=== PATIENT | male | born 1935 | race Caucasian/White ===

== ENCOUNTER 2016-06-27 12:12 | Outpatient (CLI) | payer OTHER ==
[2015-03-02 10:11] VITALS: BP 128/61
[2016-06-27 12:39] LABS: BASOPHILS % 0.6 (0.0-1.5); EOSINOPHILS % 2.4 % (0.0-6.8); LYMPHOCYTES # 2.1 # k/uL (0.6-4.0); MONOCYTES # 0.7 # k/uL (0.0-0.9); MONOCYTES % 6.5 % (0.0-11.0)
[2016-06-27 12:56] LABS: eGFR (African) > 60; eGFR (Non-African) > 60
[2016-06-27 13:02] LABS: CREATINE KINASE MB 2.1 ng/mL (0.3-5.0)
== END 2016-06-27 12:14 ==
LOC: RT 12:12
PROVIDERS: ATTEND Family Medicine
DX: R07.2 Precordial pain (principal)
CPT/HCPCS: 36415; 80048; 82550; 82553; 84484; 85025

== ENCOUNTER 2017-02-06 11:37 | Outpatient (CLI) | payer OTHER ==
[2015-03-02 10:11] VITALS: BP 128/61
[2017-02-06 12:27] LABS: eGFR (African) > 60; eGFR (Non-African) > 60
== END 2017-02-06 11:40 ==
LOC: LAB 11:37
PROVIDERS: ATTEND Family Medicine
DX: E78.2 Mixed hyperlipidemia (principal)
CPT/HCPCS: 36415; 80053; 80061

== ENCOUNTER 2017-07-31 18:55 | Emergency (ER) | payer OTHER ==
--- NOTE | 2017-07-31 19:03 | ED Physician Documentation ---
General Adult - HISTORIAN Historian: patient - HPI Stated Complaint: chest pressure and SOA Chief Complaint: Chest Pain Onset: hours (9 hours ) Timing: better Severity: mild Further Comments: yes (He states at around 930 -1000 am he was taking the trash out and noticed he did not recover from this activity like usually does. He states he does not have COPD although he is taking Spiriva. He states after this he did feel like his arms were heavy and he had some chest pressure. He states he has had since the chest pressure and fatigue. He did check his b/p at home and the number was 171/113. He states at this time he feels "normal" . According to chart and after discussion he had a stent and he was taking Plavix and was removed due to a GI bleed question 1-2 years ago. He does take Atenolol twice daily (both doses) and he has had his normal meds this am.) Last known Well Date: 07/31/17 Last Known Well Time: 10:00 - ROS CONST: other (He has had a cough and congestion x 3 days . No fever ) EYES/ENT: none CVS/RESP: chest pain, shortness of breath, cough GI/: denies: abdominal pain, vomiting, nausea, diarrhea MS/SKIN/LYMPH: denies: neck pain, leg swelling, rash NEURO/PSYCH: denies: headache, fainting, dizziness, tingling, numbness, difficulty walking, difficulty with speech - PAST HX Past History: COPD, A-Fib (new ), other (stent placement ) Surgeries/Procedures: other (Stent ) Immunizations: UTD Allergies/Adverse Reactions: Allergies Allergy/AdvReac Type Severity Reaction Status Date / Time bacitracin Allergy Verified 07/31/17 19:33 [From Triple Antibiotic] bacitracin zinc Allergy Verified 07/31/17 19:33 [From Triple Antibiotic] neomycin sulfate Allergy Verified 07/31/17 19:33 [From Triple Antibiotic] polymyxin B Allergy Verified 07/31/17 19:33 [From Triple Antibiotic] polymyxin B sulfate Allergy Verified 07/31/17 19:33 [From Triple Antibiotic] Home Medications: Ambulatory Orders Medication Instructions Recorded Aspirin [Matt] 81 mg PO [id number] 04/29/14 - SOCIAL HX Smoking History: cigarettes (1.5) Alcohol Use: none Drug Use: none - FAMILY HX Family History: No - VITAL SIGNS Vital Signs: Vital Signs Temp Pulse Resp BP Pulse Ox 128/61 03/02/15 10:00 - REVIEWED ASSESSMENTS Nursing Assessment Reviewed: Yes Vitals Reviewed: Yes Progress - Progress Progress: 1814: Family at bedside - with pt discussed current findings. Will await all test results and contact [facility]. He is "feeling ok" . DG 2039: did call garcia for possible admission. Admission advisor / Nursing Senior Warehouse Clerk aware and all results discussed. Will await CT scan results DG 2109: sitting in bed resting quietlyDG 2134: Library Services Dean at [facility] notified of CT results. She will notify physician and return call. DG ED Results Lab/Radiology - Radiology Radiology Impressions: Chest AP portable Date of Exam: July 31, 2017. History: CHEST PAIN, SHORTNESS OF BREATH, CHEST PRESSURE (Hx) / ITS.REASON chest pain Note time : 07/31/2017 8:36:53 PM User : Alejandro Jacobson CHEST PAIN (DICOM Hx) / ITS.REASON chest pain (Pt comments) Findings: No comparison studies are provided. The cardiac and mediastinal silhouettes are normal. Bibasilar dependent lung densities or atelectasis is present. The trachea is midline and the aortic arch contour is normal. The pulmonary vascularity is within normal limits. There is a right lower lobe lung granuloma. Impression: No acute cardiopulmonary abnormality. Electronically signed on Jul 31, 2017 8:12:40 PM CDT by: Mimi Benedict General Adult Physical Exam - PHYSICAL EXAM GENERAL APPEARANCE: no distress EENT: ENT inspection normal, JAZMIN NECK: normal inspection RESPIRATORY: no resp distress, chest non-tender, rhonchi (right upper ) CVS: no JVD, other (irregular ) ABDOMEN: soft, normal bowel sounds, no distension SKIN: warm/dry, normal color EXTREMITIES: non-tender, normal range of motion, no evidence of injury, edema ( RLL ) NEURO: oriented X3, CN's nml as tested, motor nml, sensation nml, mood/affect nml Discharge Clincal Impression: A-fib Qualifiers: Atrial fibrillation type: unspecified Qualified Code(s): I48.91 - Unspecified atrial fibrillation Referrals: Gala Terrell MD [Primary Care Provider] - 2 Days Additional Instructions: 1. Transfer to [facility] accepting [facility] [id number] DG Condition: Serious Disposition: XFER SHT-TRM HOSP Decision to Admit: NO Date of Decison to Admit: 07/31/17 Decision Time: 21:45
[2017-07-31] MEDS ORDERED: ASPIRIN 81 MG CHEW TAB ONE (19:22)
[2017-07-31] MEDS ORDERED: ASPIRIN 81 MG CHEW TAB PO ONE (19:24)
[2017-07-31 19:25] LABS: BASOPHILS % 0.6 (0.0-1.5); MEAN CORPUSCULAR HEMOGLOBIN 29.5 pg (28.0-34.0); MEAN CORPUSCULAR VOLUME 91.2 fl (80.0-100.0); MONOCYTES % 7.9 % (0.0-11.0); NEUTROPHILS # 7.5 # k/uL (1.4-7.7)
[2017-07-31 19:39] LABS: eGFR (African) > 60; eGFR (Non-African) > 60
[2017-07-31 22:15] VITALS: BP 157/80
--- NOTE | 2017-08-01 07:07 | Diagnostic Imaging Report ---
LIZANDRO NETTLES [facility] [address] [facility] [address] [place], [place]. [address] Report Submission Date: Jul 31, 2017 9:24:40 PM CDT Patient Study Name: HILL LUCIANO Date: Jul 31, 2017 8:39:49 PM CDT Modality Type: CT\SR Gender: M Description: CT CHEST W/ CONTRAST : 37 Institution: [facility] Physician: LIZANDRO NETTLES CT chest with contrast Date of study: July 31, 2017. CLINICAL HISTORY: ELEVATED D-DIMER, CHEST PRESSURE, SHORTNESS OF BREATH (Hx) / ITS.REASON Elevated D dimer RO PE Note time : 07/31/2017 9:56:41 PM User : Alejandro Jacobson ELEVATED D-DIMER, CHEST PRESSURE (DICOM Hx) TECHNIQUE: 1.25 mm contiguous axial images of the chest with contrast. Sagittal and coronal reconstructions. FINDINGS: Bilateral apical lung bulla and chronic emphysematous lung parenchymal changes are present. There is bilateral apical lung scarring. Bilateral peribronchial thickening is present. There is no evidence of pulmonary infiltrate, pleural effusion or pneumothorax. The cardiac and mediastinal vascular structures enhance appropriately. The aorta and pulmonary arteries are normal in caliber. There is no evidence of pulmonary artery filling defect to suggest pulmonary embolism. The mediastinal contents are within normal limits. Multilevel degenerative thoracic spondylosis as noted. The visualized portions of the liver, pancreas and spleen are unremarkable. IMPRESSION: Chronic emphysematous lung parenchymal changes and bilateral apical lung bulla. No evidence of acute pulmonary embolism. Bilateral peribronchial thickening that may represent bronchitis. Electronically signed on Jul 31, 2017 9:24:40 PM CDT by: Mimi BURGOS
--- NOTE | 2017-08-01 07:08 | Diagnostic Imaging Report ---
LIZANDRO NETTLES [facility] [address] [facility] [address] [place], [place]. [address] Report Submission Date: Jul 31, 2017 8:12:40 PM CDT Patient Study Name: HILL LUCIANO Date: Jul 31, 2017 7:22:45 PM CDT Modality Type: DX Gender: M Description: CHEST : 37 Institution: [facility] Physician: LIZANDRO NETTLES Chest AP portable Date of Exam: July 31, 2017. History: CHEST PAIN, SHORTNESS OF BREATH, CHEST PRESSURE (Hx) / ITS.REASON chest pain Note time : 07/31/2017 8:36:53 PM User : Alejandro Jacobson CHEST PAIN (DICOM Hx) / ITS.REASON chest pain (Pt comments) Findings: No comparison studies are provided. The cardiac and mediastinal silhouettes are normal. Bibasilar dependent lung densities or atelectasis is present. The trachea is midline and the aortic arch contour is normal. The pulmonary vascularity is within normal limits. There is a right lower lobe lung granuloma. Impression: No acute cardiopulmonary abnormality. Electronically signed on Jul 31, 2017 8:12:40 PM CDT by: Mimi BURGOS
== END 2017-07-31 22:00 | disposition short-term general hospital (02) ==
LOC: ED 18:55
DX: I48.91 Unspecified atrial fibrillation (principal); J44.9 Chronic obstructive pulmonary disease, unspecified
CPT/HCPCS: 71045; 71260; 80053; 82553; 83880; 84484; 85025; 85379; 99283; Q9967; S1016

== ENCOUNTER 2017-09-24 03:35 | Emergency (ER) | payer OTHER ==
[2017-09-24 04:15] LABS: BASOPHILS % 0.6 (0.0-1.5); EOSINOPHILS % 2.3 % (0.0-6.8); MEAN CORPUSCULAR HEMOGLOBIN 29.7 pg (28.0-34.0); MONOCYTES % 7.8 % (0.0-11.0); NEUTROPHILS # 5.1 # k/uL (1.4-7.7)
[2017-09-24 04:27] LABS: eGFR (African) > 60; eGFR (Non-African) > 60
--- NOTE | 2017-09-24 04:28 | ED Physician Documentation ---
General Adult - HISTORIAN Historian: patient, spouse - HPI Stated Complaint: SOB Chief Complaint: General Adult Additional Information: Carried a crock pot about 80 feet yesterday and it took him 5 minutes to recover. At 0030 today, he went to kitchen and got a bowl of ice cream, Again, it took him 5 minutes to recover. No recent fevers. Cough productive of much thick mucus in the ER. Voice hoarse today. Sweats all the time but this is not new. He had bronchitis two months ago and was diagnosed with a fib and COPD at that time. On apixaban. Continues to smoke 1 1/2 PPD. No oxygen or nebulizer at home. - ROS CONST: sweating. denies: fever - PAST HX Past History: COPD, A-Fib, other (DVT, GI bleed) Surgeries/Procedures: cardiac stent (10 years ago), other (appy, nec kand back) Allergies/Adverse Reactions: Allergies Allergy/AdvReac Type Severity Reaction Status Date / Time bacitracin Allergy Verified 09/24/17 04:45 [From Triple Antibiotic] bacitracin zinc Allergy Verified 09/24/17 04:45 [From Triple Antibiotic] neomycin sulfate Allergy Verified 09/24/17 04:45 [From Triple Antibiotic] polymyxin B Allergy Verified 09/24/17 04:45 [From Triple Antibiotic] polymyxin B sulfate Allergy Verified 09/24/17 04:45 [From Triple Antibiotic] Home Medications: Ambulatory Orders Medication Instructions Recorded Apixaban [Eliquis] 5 mg PO BID u2 08/17/17 Baclofen 10 mg PO DAILY u2 08/17/17 Baclofen 20 mg PO HS u2 08/17/17 Lopressor 50 mg PO BID u2 08/17/17 - SOCIAL HX Smoking History: cigarettes (since 21 y/0) - FAMILY HX Family History: No - VITAL SIGNS Vital Signs: Vital Signs Temp Pulse Resp BP Pulse Ox 157/80 07/31/17 22:00 - REVIEWED ASSESSMENTS Nursing Assessment Reviewed: Yes Vitals Reviewed: Yes Progress - Progress Progress: Patient Study Name: HILL LUCIANO Date: September 24, 2017 4:36:12 AM CDT Modality Type: DX Gender: M Description: CHEST : 37 Institution: [facility] Physician: GAGANDEEP ARZOLA - ER Chest AP portable Date of Exam: September 24, 2017. History: PCXR, SOA TODAY, A FIB, COPD (Hx) / ITS.REASON a fib, copd, sob Findings: Comparison is made with July 31, 2017. The cardiac and mediastinal silhouettes are stable. The lungs are clear aside from bibasilar scarring or atelectasis. No acute infiltrate or effusion is identified. The trachea is midline and the aortic arch contour is normal. Impression: No acute cardiopulmonary abnormality. Electronically signed on September 24, 2017 4:52:40 AM CDT by: Mimi Benedict 0657, Moving much more air. pink. Voice normalized. EKG, serial Trop 1's and labs ok. ED Results Lab/Radiology - Lab Results Lab Results: Lab Results 09/24/17 04:05 WBC 7.40 K/ul K/ul (4.00-12.00) RBC 5.38 M/ul H M/ul (3.90-5.20) Hgb 16.0 g/dL g/dL (12.0-18.0) Hct 48.9 % % (37.0-53.0) MCV 91.0 fl fl (80.0-100.0) MCH 29.7 pg pg (28.0-34.0) MCHC 32.7 g/dL g/dL (30.0-36.0) RDW 13.8 % % (11.3-14.3) Plt Count 198 K/mm3 K/mm3 (130-400) Neut % (Auto) 68.5 % % (39.0-79.0) Lymph % (Auto) 17.8 % % (16.0-50.0) [place] % (Auto) 7.8 % % (0.0-11.0) Eos % (Auto) 2.3 % % (0.0-6.8) Baso % (Auto) 0.6 (0.0-1.5) Neut # (Auto) 5.1 # k/uL # k/uL (1.4-7.7) Lymph # (Auto) 1.3 # k/uL # k/uL (0.6-4.0) [place] # (Auto) 0.6 # k/uL # k/uL (0.0-0.9) Eos # (Auto) 0.2 # k/uL # k/uL (0.0-0.6) Baso # (Auto) 0.0 # k/uL # k/uL (0.0-0.5) Reactive Lymphs % 3.0 % % (0.0-5.0) Reactive Lymphs # 0.2 # k/uL # k/uL (0.0-0.8) - Orders Orders: ED Orders Category Date Time Status Continuous EKG monitoring Q1H Care 09/24/17 04:[address] IV Lock 1T Care 09/24/17 04:02 Ordered CHEST 1VIEW [RAD] Stat Exams 09/24/17 Ordered CBC/PLATELET/DIFF Routine Lab 09/24/17 Ordered CMP Routine Lab 09/24/17 Ordered TROPONIN I (cTnI) Stat Lab 09/24/17 Ordered URINALYSIS Routine Lab 09/24/17 Ordered Ipratropium/Albuterol Sulfate [Duoneb] Med 09/24/17 04:11 Discontinued 3 ml NEB .STK-MED ONE Ipratropium/Albuterol Sulfate [Duoneb] Med 09/24/17 04:13 Once 3 ml NEB NOW ONE EKG WITH COMPARISON Stat Ther 09/24/17 Ordered General Adult Physical Exam - PHYSICAL EXAM GENERAL APPEARANCE: mild distress EENT: eye inspection normal, ENT inspection normal (edentulous ), pharynx normal , other ([place]) NECK: normal inspection, supple RESPIRATORY: no resp distress, breath sounds normal (but decreased throughout) CVS: heart sounds normal, irregularly irregular rhy ABDOMEN: soft, no organomegaly, normal bowel sounds BACK: normal inspection, other (no vertebral tenderness) SKIN: warm/dry, normal color EXTREMITIES: no evidence of injury, no edema NEURO: CN's nml as tested, motor nml, sensation nml, cognition normal Discharge Clincal Impression: COPD exacerbation Referrals: Gala Terrell MD [Primary Care Provider] - 2 Days Condition: Good Disposition: 01 HOME, SELF-CARE Decision to Admit: NO Decision Time: 06:55
[2017-09-24] MEDS: IPRATROPIUM/ALBUTEROL SULFATE 3 ML AMPUL.NEB NEB ONE ×3 (04:40→07:00)
[2017-09-24] MEDS: methylPREDNISolone SOD SUCC 40 MG/ML VIAL IVP ONE (05:05)
--- NOTE | 2017-09-24 07:07 | Diagnostic Imaging Report ---
[facility] [address] [facility].[address] [address] Report Submission Date: September 24, 2017 4:52:40 AM CDT Patient Study Name: HILL LUCIANO Date: September 24, 2017 4:36:12 AM CDT Modality Type: DX Gender: M Description: CHEST : 37 Institution: [facility] Physician: GAGANDEEP ARZOLA - NABILA Chest AP portable Date of Exam: September 24, 2017. History: PCXR, SOA TODAY, A FIB, COPD (Hx) / ITS.REASON a fib, copd, sob Findings: Comparison is made with July 31, 2017. The cardiac and mediastinal silhouettes are stable. The lungs are clear aside from bibasilar scarring or atelectasis. No acute infiltrate or effusion is identified. The trachea is midline and the aortic arch contour is normal. Impression: No acute cardiopulmonary abnormality. Electronically signed on September 24, 2017 4:52:40 AM CDT by: Mimi BURGOS
[2017-09-24 07:24] VITALS: BP 148/87
== END 2017-09-24 07:22 | disposition home or self-care (01) ==
LOC: ED 03:35
DX: J44.1 Chronic obstructive pulmonary disease with (acute) exacerbation (principal)
CPT/HCPCS: 71045; 80053; 84484; 85025; 87040; 93005; 94640; 96374; 99285; J1030; J2920; S1016

== ENCOUNTER 2017-10-03 13:31 | Outpatient (CLI) | payer OTHER ==
[2017-10-03] MEDS ORDERED: ALBUTEROL SULFATE 2.5 MG/3 ML AMPUL.NEB NEB ONE (13:48)
== END 2017-10-03 13:33 ==
LOC: RT 13:31
PROVIDERS: ATTEND Family Medicine
DX: J44.9 Chronic obstructive pulmonary disease, unspecified (principal)
CPT/HCPCS: 94060

== ENCOUNTER 2017-10-06 10:55 | Outpatient (CLI) | payer OTHER ==
--- NOTE | 2017-10-18 13:52 | CONSULTATION REPORT ---
PRIMARY CARE PROVIDER: Dr. Gala Terrell CONSULTING PHYSICIAN: Jackie Aragon MD CHIEF COMPLAINT: "I have had trouble breathing recently and need a lung doctor." PROBLEM LIST: 1. Moderate chronic obstructive pulmonary disease (COPD), GOLD Class 2. 2. Atrial fibrillation, on anticoagulation. 3. Coronary artery disease, status post stent placement. 4. Obstructive sleep apnea. 5. Gastroesophageal reflux disease (GERD). 6. Hypertension. 7. Hyperlipidemia. 8. Degenerative cervical disk disease. 9. Cervical stenosis, spinal canal. 10. History of GI bleed due to peptic ulcer disease. 11. Obesity, Class 1: BMI is 32.7. HISTORY OF PRESENT ILLNESS: This is an 82-year-old male who presents to the Pulmonary Clinic with his . Per the patient's and old medical records, the patient presented to [facility] ED on July 31, 2017, complaining of shortness of breath and some chest pain. Patient was noted to be in atrial fibrillation ( new). He was also given the diagnosis fo bronchitis and a CT scan was done to evaluate for PE. Patient was transferred to [facility] and evaluated by Cardiology. The patient was hospitalized from July 31, 2017, through August 03, 2017. During that hospitalization, patient was started on apixaban for his atrial fibrillation and an echocardiogram was performed on August 01, 2017, that showed normal LV size and function and an EF of 60%, no significant valvular abnormalities, indeterminant LV diastolic function. Patient was discharged from [facility] with follow up with Dr. Terrell. On September 24, 2017, patient developed shortness of breath again and went to the ED at [facility] and given the diagnosis of COPD exacerbation. He was treated with a Z-Pack and tapering doses of prednisone. He subsequently saw Dr. Terrell in the office on September 28, 2017, and she prescribed nebulized albuterol to be used p.r.n. The patient states that the nebulized albuterol definitely helps his breathing and also helps him to bring up mucus. He has also been on Spiriva for the last 3 years and he thinks that does help him. Patient states he does have a diagnosis of sleep apnea and is supposed to be using a CPAP; however, his machine is broken and he has not used a CPAP in the last 6 months. His most recent sleep study apparently was done at the [facility] approximately 8 years ago. Tobacco Use: Patient smokes 2 to 3 packs per day and has been smoking for 60 years, recently he has been able to cut down on the cigarettes and smokes between half a pack and 1 pack per day. Patient denies chest pain. There is no PND. Occasionally, he notes ankle edema. He states that he has been gaining weight. His appetite is good. His energy level is fair and he does have a cough with varied colored sputum. He complains of esophageal reflux. He complains of sinus congestion and postnasal drip. He has been on prednisone and antibiotics for his breathing. He denies any hemoptysis and no fever, chills, or sweats. He denies a past history of asthma, pneumonia, or DVTs. REVIEW OF SYSTEMS: Please see HPI for pertinent review of systems. Also, please see [facility] patient intake record. ALLERGIES: Triple antibiotic ointment. MEDICATIONS: 1. Omeprazole 40 mg daily. 2. Simvastatin 20 mg daily. 3. Metoprolol 50 mg b.i.d. 4. Baclofen 10 mg every 8 hours p.r.n. 5. Apixaban 5 mg b.i.d. 6. Tiotropium 18 mcg daily via inhalation. 7. Albuterol nebulizer every 4 hours p.r.n. shortness of breath. SOCIAL HISTORY: Patient is and lives with his . She also smokes cigarettes. FAMILY HISTORY: 1. Lung disease: Mother. 2. Cancer, lung disease, heart disease: Brother and sister. PHYSICAL EXAMINATION: VITAL SIGNS: BP: 116/75, P: 98, R: 22, T: 97.9, oxygen saturation 95% on room air. Height: 6 feet 1 inch. Weight: 248 pounds. BMI is 32.7. GENERAL: This is a well-developed obese male in no acute distress speaking in full sentences. HEENT: Pupils are equal and reactive to light. Oropharynx with slight erythema. No thrush. NECK: Supple. No lymphadenopathy. No JVD. LUNGS: Moderate bilateral air excursion. No wheezing, crackles, or rhonchi. No increased tactile fremitus. CARDIAC: Rate and rhythm are regular. S1 and S2, without S3 or S4. There is no murmur, rubs, or gallops. ABDOMEN: Obese. Soft and nontender. Positive bowel sounds. Nontender. EXTREMITIES: No cyanosis or clubbing. There is 1+ lower extremity edema with bilateral venous stasis changes. NEUROLOGIC: Alert and oriented x3. Grossly nonfocal. IMAGING: All imaging independently reviewed by me personally. 1. PFT on October 03, 2017. FVC was 3.05 liters, 68% of predicted; FEV1 was 1.90 liters, 55% of predicted, FEV1/FVC was 0.62. There is a bronchodilator response. INTERPRETATION: Moderate COPD, GOLD Class 2. 2. Chest x-ray on September 24, 2017, portable. Lordotic retrocardiac haziness. 3. Chest CT scan on July 31, 2017. No pulmonary embolism. Significant emphysema. Right subpleural scarring. 4. Chest x-ray on July 31, 2017, portable. No infiltrates. LABORATORIES: 1. Chemistry on September 24, 2017. Sodium 141, potassium 4.2, chloride 104, bicarb 30, BUN 19, creatinine 1.1. 2. CBC on September 24, 2017. Hemoglobin 16, hematocrit 49, white blood cell count 7.4, platelets 198,000. ASSESSMENT AND PLAN: PROBLEM #1: Moderate chronic obstructive pulmonary disease (COPD), GOLD Class 2. At present, patient states that he feels he is adequately controlled using tiotropium on a daily basis and the albuterol nebulizer p.r.n. PLAN: 1. Continue tiotropium 18 mcg via inhalation daily. 2. Continue albuterol via nebulizer p.r.n. shortness of breath. 3. Prescription written for albuterol MDI 2 puffs every 3 hours p.r.n. shortness of breath and wheezing: This is a rescue inhaler that I instructed the patient to carry. PROBLEM #2: Tobacco use. Patient is an extensive user of tobacco. He acknowledges this and he also acknowledges at least today, he is not interested in quitting. PLAN: 1. Encourage tobacco cessation. 2. Discuss the possibility of using nicotine patches and other modes of tobacco cessation at the follow up visits. PROBLEM #3: Obstructive sleep apnea. PLAN: 1. I encouraged the patient to get his CPAP machine fixed. 2. We will obtain the sleep study from the [facility] done approximately 8 years ago. 3. Return to clinic in 1 month. ADDENDUM: The following I obtained from review of old records after I saw Mr. Baca in the clinic. FURTHER PROBLEMS: 1. Status post cervical foraminotomy. 2. Status post left diskectomy at C7 through T10 on the left. Both procedures were performed in June 2009. Polysomnography done in January 2005 shows an AHI of 20 per minute, lowest oxygen saturation was 85%. CPAP titration study done in January 2005 shows the best performance at 15 cm of water. Lowest oxygen saturation was 97% on room air. cc: Dr. Gala BURGOS
== END 2017-10-06 10:56 ==
LOC: PULMONARY 10:55
PROVIDERS: ATTEND Internal Medicine Pulmonary Disease
DX: J44.9 Chronic obstructive pulmonary disease, unspecified (principal); Z72.0 Tobacco use; G47.33 Obstructive sleep apnea (adult) (pediatric)
CPT/HCPCS: 99214; G0463

== ENCOUNTER 2018-01-02 09:48 | Outpatient (CLI) | payer OTHER ==
[2018-01-02 10:54] LABS: eGFR (Non-African) > 60
== END 2018-01-02 09:50 ==
LOC: LAB 09:48
PROVIDERS: ATTEND Family Medicine
DX: I25.10 Atherosclerotic heart disease of native coronary artery without angina pectoris (principal)
CPT/HCPCS: 36415; 80053; 80061

== ENCOUNTER 2018-01-03 09:51 | Outpatient (CLI) | payer OTHER ==
--- NOTE | 2018-01-03 18:42 | Diagnostic Imaging Report ---
DONTE GOLDEN [facility] [address] [facility].[address] [address] Report Submission Date: Jan 03, 2018 11:28:17 AM CDT Patient Study Name: HILL LUCIANO Date: Jan 03, 2018 9:55:49 AM CDT Modality Type: DX Gender: M Description: LOWER EXTREMITY : 37 Institution: [facility] Physician: DONTE GOLDEN Examination: Plain film right knee History: RT KNEE, RT KNEE PAIN FOR ABOUT A WEEK (Hx) Findings: 3 weight bearing views of the right knee demonstrates generalized osteopenia. Articular degenerative spurring. No fracture. No dislocation. No joint effusion. No soft tissue irregularity. Impression: Osteopenia and degenerative changes. No acute appearing osseous abnormality. Electronically signed on Jan 03, 2018 11:28:17 AM CDT by: Keaton BURGOS
== END 2018-01-03 09:52 ==
LOC: RAD 09:51
PROVIDERS: ATTEND Family Medicine
DX: M25.561 Pain in right knee (principal)
CPT/HCPCS: 73562

== ENCOUNTER 2018-05-24 09:49 | Outpatient (CLI) | payer OTHER ==
[2018-05-24 10:11] LABS: BASOPHILS % 0.6 (0.0-1.5); EOSINOPHILS % 1.8 % (0.0-6.8); MEAN CORPUSCULAR HEMOGLOBIN 29.1 pg (28.0-34.0); MONOCYTES % 7.6 % (0.0-11.0); NEUTROPHILS # 7.3 # k/uL (1.4-7.7)
[2018-05-24 10:36] LABS: eGFR (Non-African) > 60
--- NOTE | 2018-05-24 21:02 | Diagnostic Imaging Report ---
DONTE GOLDEN [facility] [address] [facility] [address] [place], [place]. [address] Report Submission Date: May 24, 2018 3:37:35 PM METAL BONDING HELPER Patient Study Name: HILL LUCIANO Date: May 24, 2018 10:07:38 AM METAL BONDING HELPER Modality Type: CT\SR Gender: M Description: CT ABD PELVIS W/O CO : 37 Institution: [facility] Physician: DONTE GOLDEN Examination: CT Abdomen/pelvis History: RENAL STONE PROTCOL, HEMATURIA Comparison exams: None available Technique: CT Abdomen/pelvis without IV protocol. Findings: Liver, spleen, adrenals, pancreas and kidneys are without gross irregularity given exam technique. Gallstones. No pericholecystic inflammation. Renal vascular calcifications. No suspicious renal cortical calcifications. Ureters are nondilated in their course through the abdomen and pelvis. No central calcifications. Bladder margin within normal limits. Abdominal aorta dilated to 4 cm at the level the renal arteries. Peripheral atherosclerotic disease. Cardiac silhouette is not enlarged. No pericardial effusion. Vascular calcifications. Bowel unopacified limiting evaluation. No abnormal dilation. Stool within the large bowel limiting sensitivity. No mesenteric inflammatory changes or free fluid. Appendix not visualized. Osseous structures demonstrate degenerative changes. Curvature to the right. Lung bases demonstrate scarring without infiltrate. No effusion. Impression: No acute upper abdominal organ inflammatory process. No abnormal bowel dilation or inflammation. Gallstones. No adjacent pericholecystic inflammation. 4 cm aortic aneurysmal dilation at the level the renal arteries. No suspicious renal calcifications or abnormal ureteric dilation. No lung base consolidation or effusion. Electronically signed on May 24, 2018 3:37:35 PM METAL BONDING HELPER by: Keaton BURGOS
== END 2018-05-24 09:50 ==
LOC: RAD 09:49
PROVIDERS: ATTEND Family Medicine
DX: R31.0 Gross hematuria (principal); K80.80 Other cholelithiasis without obstruction; I71.4 Abdominal aortic aneurysm, without rupture
CPT/HCPCS: 36415; 74176; 80048; 85025

== ENCOUNTER 2018-06-12 11:35 | Outpatient (CLI) | payer OTHER ==
--- NOTE | 2018-06-12 12:16 | Diagnostic Imaging Report ---
VANI BURNS [facility] [address] [facility] [address] [place] [address]. [id number] Report Submission Date: Jun 12, 2018 12:07:42 PM ABORIGINAL LIAISON OFFICER Patient Study Name: HILL LUCIANO Date: Jun 12, 2018 11:43:25 AM ABORIGINAL LIAISON OFFICER Modality Type: CT Gender: M Description: CT BRAIN W/O CONTRAST : 39 Institution: [facility] Physician: VANI BURNS CT BRAIN WITHOUT CONTRAST HISTORY: Sudden hypertension and unsteady gait TECHNIQUE: Axial images were obtained from the skullbase to the vertex without IV contrast. FINDINGS: The ventricular system, basilar cisterns and cortical sulci are prominent compatible with age-related cortical volume loss. Patchy areas of periventricular to subcortical white matter lucency are present consistent with mild small vessel ischemic disease. There is no positive mass effect or intra/extra-axial hemorrhage. Visualized paranasal sinuses and mastoid air cells are clear aside from a small mucous retention cyst inferiorly of the right maxillary sinus. The calvarium is intact. IMPRESSION: Age-related cortical volume loss with mild small vessel ischemic disease. No acute intracranial abnormality. Electronically signed on Jun 12, 2018 12:07:42 PM ABORIGINAL LIAISON OFFICER by: Camelia BURGOS
== END 2018-06-12 11:36 ==
LOC: RAD 11:35
PROVIDERS: ATTEND Family Medicine
DX: Z86.73 Personal history of transient ischemic attack (TIA), and cerebral infarction without residual deficits (principal)
CPT/HCPCS: 70450

== ENCOUNTER 2018-07-30 10:59 | Outpatient (CLI) | payer OTHER ==
--- NOTE | 2018-07-31 11:16 | Diagnostic Imaging Report ---
DONTE GOLDEN [facility] [address] [facility] [address] [address] Report Submission Date: Jul 31, 2018 11:05:10 AM CDT Patient Study Name: HILL LUCIANO Date: Jul 30, 2018 11:14:13 AM CDT Modality Type: US Gender: M Description: US DUPLEX ARTERIAL LE BILAT : 39 Institution: [facility] Physician: DONTE GOLDEN Duplex imaging lower extremity arterial system bilaterally Clinical history: Decreased pulses. Right-sided ulcer. Technique: Real-time sonography both lower extremities is performed in transverse and longitudinal views. Doppler interrogation and color-flow imaging were additionally used. Findings: There are biphasic waveforms on right seen extending from the common femoral artery to the popliteal artery. Waveform becomes monophasic in the tibial vessels. Left side also demonstrates biphasic waveforms from the common femoral artery through the popliteal artery with monophasic waveforms in the tibial vessels. There is no significant alteration in arterial velocities to suggest hemodynamically significant stenosis. Impression: 1. Loss of the biphasic waveform at the level of the tibial vessels bilaterally but without velocity evidence of hemodynamically significant stenosis. Electronically signed on Jul 31, 2018 11:05:10 AM CDT by: Caden BURGOS
== END 2018-07-30 11:00 ==
LOC: RAD 10:59
PROVIDERS: ATTEND Family Medicine
DX: R09.89 Other specified symptoms and signs involving the circulatory and respiratory systems (principal)
CPT/HCPCS: 93925

== ENCOUNTER 2018-08-27 13:31 | Outpatient (CLI) | payer OTHER | END 2018-08-27 13:33 | LOC: LAB 13:31 | PROVIDERS: ATTEND Urology | DX: R97.20 Elevated prostate specific antigen [PSA] (principal) | CPT/HCPCS: 36415; 84153 ==

== ENCOUNTER 2018-09-14 11:52 | Emergency (ER) | payer OTHER ==
--- NOTE | 2018-09-14 12:15 | ED Physician Documentation ---
Dizziness - HISTORIAN Historian: patient - HPI Stated Complaint: veritgo Chief Complaint: Dizziness Additional Information: Patient presents to ED after having several episodes of dizziness this morning. Patient states he was laying on the cough watching TV, he sat up and had some dizziness which resolved within several minutes. He took his blood pressure and it was normal. Patient reports laying back down on the cough and again sitting up causing dizziness. He then called 911. By the time EMS arrived he was feeling fine. He has a history of atrial fibrillation (diagnosed 18 months ago, he is on blood thinner), COPD, aortic aneurysm (re-eval in 6 months). He denies falling, hitting his head or syncope. He was started on alpha meg last week for his BPH by his urologist. Timing: sudden onset Duration: intermittent episodes Severity: mild Associated Symptoms: none Decreased Ability to Stand/ Walk: denies: weak, off balance Usually: walks w/o assistance Worsened By: changing position - ROS CONST: none EYES/ENT: none GI/: none MS/SKIN/LYMPH: none NEURO/PSYCH: none CVS/RESP: none - PAST HX Past History: hypertension, COPD Cardiac Disease: none Surgeries/Procedures: none Allergies/Adverse Reactions: Allergies Allergy/AdvReac Type Severity Reaction Status Date / Time bacitracin Allergy Verified 09/14/18 12:01 [From Triple Antibiotic] bacitracin zinc Allergy Verified 09/14/18 12:01 [From Triple Antibiotic] neomycin sulfate Allergy Verified 09/14/18 12:01 [From Triple Antibiotic] polymyxin B Allergy Verified 09/14/18 12:01 [From Triple Antibiotic] polymyxin B sulfate Allergy Verified 09/14/18 12:01 [From Triple Antibiotic] - SOCIAL HX Smoking History: non-smoker Alcohol Use: none Drug Use: none - FAMILY HX Family History: none - VITAL SIGNS Vital Signs: Vital Signs Temp Pulse Resp BP Pulse Ox 98.6 F 93 H 21 117/73 94 09/14/18 11:57 09/14/18 11:57 09/14/18 11:57 09/14/18 11:57 09/14/18 11:57 - REVIEWED ASSESSMENTS Nursing Assessment Reviewed: Yes Vitals Reviewed: Yes Progress - EKG/XRAY/CT Comments: 1238 Atrial fibrillation 84 bpm ED Results Lab/Radiology - Radiology Radiology Impressions: Report Submission Date: September 14, 2018 12:52:05 PM CDT Patient Study Name: HILL LUCIANO Date: September 14, 2018 12:24:04 PM CDT Modality Type: CT\SR Gender: M Description: CT BRAIN W/O CONTRAST : 37 Institution: [facility] Physician: TRINA PATHAK HEAD CT WITHOUT CONTRAST HISTORY: Dizziness COMPARISON: June 12, 2018 TECHNIQUE: Axial images were obtained from the skullbase to the vertex without IV contrast. FINDING: There is age-related cortical volume loss. There is normal parenchymal attenuation. There is no positive mass effect or intra/extra-axial hemorrhage. Visualized paranasal sinuses demonstrate a 2.5 cm mucous retention cyst inferiorly of the right maxillary sinus. Otherwise, paranasal sinuses and mastoid air cells are clear. The calvarium is intact. IMPRESSION: NO ACUTE INTRACRANIAL ABNORMALITY. 2.5 cm mucous retention cyst inferiorly of the right maxillary sinus. Electronically signed on September 14, 2018 12:52:05 PM CDT by: Camelia Hernandez Report Submission Date: September 14, 2018 12:53:50 PM CDT Patient Study Name: HILL LUCIANO Date: September 14, 2018 12:18:36 PM CDT Modality Type: DX Gender: M Description: CHEST 1VIEW : 39 Institution: [facility] Physician: TRINA PATHAK Portable chest History: Dizziness Portable chest dated September 14, 2018 is compared with September 24, 2017. The cardiomediastinal silhouette is within normal limits and unchanged. Pu lmonary vascularity is normal. No confluent infiltrate or pleural effusion is noted. Impression: No active disease. Electronically signed on September 14, 2018 12:53:50 PM CDT by: Camelia Hernandez - Orders Orders: ED Orders Category Date Time Status Orthostatics 1T Care 09/14/18 11:[address] IV Lock 1T Care 09/14/18 11:59 Active CHEST 1VIEW [RAD] Stat Exams 09/14/18 Ordered CBC/PLATELET/DIFF Routine Lab 09/14/18 Ordered CMP Routine Lab 09/14/18 Ordered TROPONIN I Stat Lab 09/14/18 Ordered EKG WITH COMPARISON Stat Ther 09/14/18 Ordered Dizziness Physical Exam - Physical Exam General Appearance: no distress EENT: JAZMIN Neck: supple Respiratory: no respiratory distress, decreased air movement CVS: irregularly irregular rhy Abdomen: soft, non-tender Skin: warm/dry, normal color Neuro: nml orientation, nml speech, nml cognition, mood/affect nml Discharge Clincal Impression: Dizziness Referrals: Gala Terrell MD [Primary Care Provider] - 2 Days Additional Instructions: 1. Follow up with urologist as soon as possible. Discuss dizziness with new medication 2. Drink plenty of fluids to maintain proper hydration. Avoid caffeine and alcohol 3. Follow up with PCP within 1 week 4. Refrain from driving and operating machinery until symptom free for 2 weeks 5. Return to ER for new or worsening symptoms Condition: Stable Disposition: 01 HOME, SELF-CARE Decision to Admit: NO Date of Decison to Admit: 09/14/18 Decision Time: 13:35
[2018-09-14 12:34] LABS: BASOPHILS % 0.6 % (0.0-1.5); EOSINOPHILS % 2.4 % (0.0-6.8); MEAN CORPUSCULAR HEMOGLOBIN 29.4 pg (28.0-34.0); MONOCYTES % 9.6 % (0.0-11.0); NEUTROPHILS # 6.6 # k/uL (1.4-7.7)
[2018-09-14 12:40] LABS: eGFR (Non-African) > 60
[2018-09-14 13:48] VITALS: BP 131/73
--- NOTE | 2018-09-14 22:07 | Diagnostic Imaging Report ---
TRINA PATHAK [facility] [address] [facility] [address] [place], [place]. [address] Report Submission Date: September 14, 2018 12:53:50 PM CDT Patient Study Name: HILL LUCIANO Date: September 14, 2018 12:18:36 PM CDT Modality Type: DX Gender: M Description: CHEST 1VIEW : 37 Institution: [facility] Physician: TRINA PATHAK Portable chest History: Dizziness Portable chest dated September 14, 2018 is compared with September 24, 2017. The cardiomediastinal silhouette is within normal limits and unchanged. Pulmonary vascularity is normal. No confluent infiltrate or pleural effusion is noted. Impression: No active disease. Electronically signed on September 14, 2018 12:53:50 PM CDT by: Camelia BURGOS
--- NOTE | 2018-09-14 22:08 | Diagnostic Imaging Report ---
TRINA PATHAK [facility] [address] [facility] [address] [place], [place]. [address] Report Submission Date: September 14, 2018 12:52:05 PM CDT Patient Study Name: HILL LUCIANO Date: September 14, 2018 12:24:04 PM CDT Modality Type: CT\SR Gender: M Description: CT BRAIN W/O CONTRAST : 39 Institution: [facility] Physician: TRINA PATHAK HEAD CT WITHOUT CONTRAST HISTORY: Dizziness COMPARISON: June 12, 2018 TECHNIQUE: Axial images were obtained from the skullbase to the vertex without IV contrast. FINDING: There is age-related cortical volume loss. There is normal parenchymal attenuation. There is no positive mass effect or intra/extra-axial hemorrhage. Visualized paranasal sinuses demonstrate a 2.5 cm mucous retention cyst inferiorly of the right maxillary sinus. Otherwise, paranasal sinuses and mastoid air cells are clear. The calvarium is intact. IMPRESSION: NO ACUTE INTRACRANIAL ABNORMALITY. 2.5 cm mucous retention cyst inferiorly of the right maxillary sinus. Electronically signed on September 14, 2018 12:52:05 PM CDT by: Camelia BURGOS
== END 2018-09-14 13:48 | disposition home or self-care (01) ==
LOC: ED 11:52
DX: R42 Dizziness and giddiness (principal)
CPT/HCPCS: 36415; 70450; 71045; 80053; 84484; 85025; 99283; 99285

== ENCOUNTER 2019-01-21 12:20 | Outpatient (CLI) | payer OTHER | END 2019-01-21 12:23 | LOC: LAB 12:20 | PROVIDERS: ATTEND Urology | DX: R97.20 Elevated prostate specific antigen [PSA] (principal) | CPT/HCPCS: 36415; 84153 ==

== ENCOUNTER 2019-04-08 06:34 | Observation (INO) | payer OTHER ==
--- NOTE | 2019-04-08 07:00 | ED Physician Documentation ---
Dyspnea - HISTORIAN Historian: patient - HPI Chief Complaint: Dyspnea Additional Information: 83 year old male presents to the ER with his ; patient c/o shortness of breath that started around 4:30 this morning; he states that his nebulizer is not working so he used his inhaler but did not get much relief. He denies any f/c/n/v/d. He c/o chest tightness and pain in the left shoulder. States left shoulder pain could be from his neck. He still smokes tobacco. states that the house was pretty warm and he sometimes has trouble catching his breath. Onset: hours Duration: continues in ED, better Initiating Event: out of meds (nebulizer machine not working), exposure to smoke Severity: mild Exacerbated By: exertion, laying flat Associated Symptoms: chest discomfort - ROS CONST: no problems EYES/ENT: nasal congestion GI/: denies: vomiting, nausea NEURO/PSYCH: denies: headache MS/SKIN/LYMPH: none - PAST HX Lung Disease: COPD Cardiac Disease: CAD, A-Fib PE Risk Factors: hypertension, other (DANA, Hx of DVT, Peripheral neuropathy) Surgeries/Procedures: other (C3C4 disc fusion) Immunizations: UTD - SOCIAL HX Smoking History: less than 1 pack/day Alcohol Use: none Drug Use: none - FAMILY HX Family History: none - VITAL SIGNS Vital Signs: Vital Signs Temp Pulse Resp BP Pulse Ox 131/73 09/14/18 13:46 - REVIEWED ASSESSMENTS Nursing Assessment Reviewed: Yes Vitals Reviewed: Yes <Ingrid Sullivan - Last Filed: 04/08/19 06:58> - HPI Further Comments: yes (Pt has hx cardiac stent.) - PAST HX PE Risk Factors: other Surgeries/Procedures: cardiac stent, other - VITAL SIGNS Vital Signs: Vital Signs Temp Pulse Resp BP Pulse Ox 98.0 F 83 24 153/84 95 04/08/19 06:40 04/08/19 07:22 04/08/19 06:40 04/08/19 06:40 04/08/19 07:22 <Emerson Burleson - Last Filed: 04/08/19 08:54> - PAST HX Allergies/Adverse Reactions: Allergies Allergy/AdvReac Type Severity Reaction Status Date / Time bacitracin Allergy Verified 04/08/19 07:00 [From Triple Antibiotic] bacitracin zinc Allergy Verified 04/08/19 07:00 [From Triple Antibiotic] neomycin sulfate Allergy Verified 04/08/19 07:00 [From Triple Antibiotic] polymyxin B Allergy Verified 04/08/19 07:00 [From Triple Antibiotic] polymyxin B sulfate Allergy Verified 04/08/19 07:00 [From Triple Antibiotic] Home Medications: Ambulatory Orders Medication Instructions Recorded Finasteride [Proscar] 5 mg PO HS 04/08/19 Metoprolol Tartrate [Lopressor] 50 mg PO BID 04/08/19 Tamsulosin HCl 0.4 mg PO DAILY 04/08/19 Progress - Progress Progress: Solu-medrol 80 mg IV Duoneb HFN in ER Xopenex HRN in ER Lasix 20 mg IV in ER Admit to observation, Dr. Terrell. r/o MA. - EKG/XRAY/CT EKG: rhythm (Afib, HR=86; normal axis.) XRAY: chest (No acute pulmonary process. ) <Emerson Burleson - Last Filed: 04/08/19 08:54> ED Results Lab/Radiology - Orders Orders: ED Orders Category Date Time Status Continuous EKG monitoring Q30M Care 04/08/19 06:56 Ordered Continuous Pulse Oximetry Q30M Care 04/08/19 06:[address] IV Lock 1T Care 04/08/19 06:56 Ordered CHEST 2VIEW [RAD] Stat Exams 04/08/19 Ordered CBC/PLATELET/DIFF Stat Lab 04/08/19 06:56 Ordered CKMB Stat Lab 04/08/19 06:56 Ordered CMP Stat Lab 04/08/19 06:56 Ordered CREATINE KINASE Stat Lab 04/08/19 06:56 Ordered NT BNP Stat Lab 04/08/19 Ordered TROPONIN I Stat Lab 04/08/19 06:56 Ordered Oxygen Daily Oxygen 04/08/19 07:00 Ordered EKG WITH COMPARISON Stat Ther 04/08/19 06:56 Ordered <Ingrid Sullivan - Last Filed: 04/08/19 06:58> - Lab Results Lab Results: Lab Results 04/08/19 04/08/19 07:07 07:07 WBC 9.30 K/ul K/ul (4.00-12.00) RBC 5.15 M/ul M/ul (3.90-5.20) Hgb 15.2 g/dL g/dL (12.0-18.0) Hct 46.2 % % (37.0-53.0) MCV 90.0 fl fl (80.0-100.0) MCH 29.6 pg pg (28.0-34.0) MCHC 33.0 g/dL g/dL (30.0-36.0) RDW 11.9 % % (11.3-14.3) Plt Count 197 K/mm3 K/mm3 (130-400) Neut % (Auto) 71.6 % % (39.0-79.0) Lymph % (Auto) 17.2 % % (16.0-50.0) [place] % (Auto) 8.8 % % (0.0-11.0) Eos % (Auto) 2.0 % % (0.0-6.8) Baso % (Auto) 0.4 % % (0.0-1.5) Neut # (Auto) 6.6 # k/uL # k/uL (1.4-7.7) Lymph # (Auto) 1.6 # k/uL # k/uL (0.6-4.0) [place] # (Auto) 0.8 # k/uL # k/uL (0.0-0.9) Eos # (Auto) 0.2 # k/uL # k/uL (0.0-0.6) Baso # (Auto) 0.0 # k/uL # k/uL (0.0-0.5) Sodium 142 mmol/L mmol/L (137-145) Potassium 4.2 mmol/L mmol/L (3.5-5.1) Chloride 104 mmol/L mmol/L (98-107) Carbon Dioxide 32 mmol/L H mmol/L (22-30) Anion Gap 10.2 BUN 20 mg/dL mg/dL (9-20) Creatinine 1.01 mg/dL mg/dL (0.66-1.25) Estimated Creat Clear 93 Est GFR ( Amer) > 60 (60 - ) Est GFR (Non-Af Amer) > 60 (60 - ) Glucose 122 mg/dL H mg/dL (74-106) Calcium 8.8 mg/dL mg/dL (8.4-10.2) Total Bilirubin 0.7 mg/dL mg/dL (0.2-1.3) AST 42 U/L U/L (15-46) ALT 16 U/L U/L (0-50) Alkaline Phosphatase 105 U/L U/L (38-126) Creatine Kinase 108 U/L U/L (55-170) CK-MB (CK-2) Pending Troponin I Pending NT-Pro-B Natriuret Pep Pending Total Protein 7.1 g/dL g/dL (6.3-8.2) Albumin 3.8 g/dL g/dL (3.5-5.0) - Orders Orders: ED Orders Category Date Time Status Continuous EKG monitoring Q30M Care 04/08/19 06:56 Active Continuous Pulse Oximetry Q30M Care 04/08/19 06:[address] IV Lock 1T Care 04/08/19 06:56 Active CHEST 2VIEW [RAD] Stat Exams 04/08/19 Ordered CBC/PLATELET/DIFF Stat Lab 04/08/19 07:07 Completed CKMB Stat Lab 04/08/19 07:07 Results CMP Stat Lab 04/08/19 07:07 Results CREATINE KINASE Stat Lab 04/08/19 07:07 Results NT BNP Stat Lab 04/08/19 07:07 Results TROPONIN I Stat Lab 04/08/19 07:07 Results Ipratropium/Albuterol Sulfate [Duoneb] Med 04/08/19 07:02 Discontinued 3 ml NEB .STK-MED ONE Ipratropium/Albuterol Sulfate [Duoneb] Med 04/08/19 07:05 Discontinued 3 ml NEB NOW ONE Oxygen Daily Oxygen 04/08/19 07:00 Ordered EKG WITH COMPARISON Stat Ther 04/08/19 06:56 Completed <Emerson Burleson Last Filed: 04/08/19 08:54> Dyspnea Physical Exam - EXAM General Appearance: alert, mild distress EENT: eye inspection normal, ENT inspection normal, pharynx normal, JAZMIN Neck: nml inspection Respiratory: breath sounds nml, speaks full sentences CVS: pulses equal, tachycardia Abdomen: non-tender Extremities: normal range of motion Neuro/Psych: oriented x3, motor nml, sensation nml, mood/affect nml <Ingrid Sullivan Last Filed: 04/08/19 06:58> Discharge <Ingrid Sullivan Filed: 04/08/19 06:58> Decision to Admit: [id number] Decision Time: 08:54 <Emerson Burleson - Last Filed: 04/08/19 08:54> Clincal Impression: Dyspnea, COPD, elevated BNP, chest pain Referrals: Gala Terrell MD [Primary Care Provider] - Condition: Stable Disposition: 09 ADMITTED INPATIENT
[2019-04-08] MEDS ORDERED: IPRATROPIUM/ALBUTEROL SULFATE 3 ML AMPUL.NEB NEB ONE ×2 (07:02→07:05)
[2019-04-08 07:16] LABS: BASOPHILS % 0.4 % (0.0-1.5); NEUTROPHILS # 6.6 # k/uL (1.4-7.7)
[2019-04-08 07:24] LABS: eGFR (Non-African) > 60
--- NOTE | 2019-04-08 07:45 | Diagnostic Imaging Report ---
PATIENT MR#: [id number] PATIENT PATIENT NAME: HILL LUCIANO DATE OF : 1935 REFERRING PHYSICIAN: Emerson Burleson EXAM DATE: 04/08/2019 ACCESSION NUMBER: [id number] EXAM DESCRIPTION: CHEST 2VIEW HISTORY: DIFFICULTY BREATHING X 4-5 DAYS; HX OF COPD AND AFIB. COMPARISON: September 14, 2018. CHEST RADIOGRAPH, FRONTAL AND LATERAL: Upper mediastinum: Not widened. Heart: No cardiomegaly. Lungs: There is an 8 x 14 mm ovoid density of the right lung apex superimposed over the 1st rib shado w, which was not confidently visualized on the prior exam, possibly due to differences of technique and positioning. A similar 8 mm nodule is superimposed over the 5th anterior rib, laterally. Hyperinflation of COPD. No lobar infiltr ate, pulmonary edema, pneumothorax or significant effusion. Skeleton: No acute findings. IMPRESSION: 1. Possible right pulmonary nodules. This may be further evaluated with low-dose chest CT. 2. No evidence of pulmonary edema or infiltrate to explain shortness of breath. Read by: Dr. Mike Correa Transcribed by: Mike Correa Transcribed Date: 04/08/2019 8:00:21 AM Electronically signed by: Dr. Mike Correa Date signed: 04/08/2019 8:01:12 AM
[2019-04-08] MEDS ORDERED: LEVALBUTEROL NEB 1.25 MG/3 ML VIAL.NEB NEB ONE (07:48)
[2019-04-08] MEDS ORDERED: methylPREDNISolone SOD SUCC 40 MG/ML VIAL IVP ONE ×2 (07:51→20:00)
[2019-04-08] MEDS ORDERED: FUROSEMIDE 20 MG/2 ML VIAL IVP ONE (08:30)
[2019-04-08] MEDS ORDERED: TAMSULOSIN HCL 0.4 MG CAP.ER.24H PO SCH (09:00)
[2019-04-08] MEDS ORDERED: TIOTROPIUM BROMIDE INHALER IH SCH ×2 (09:00→21:00)
[2019-04-08] MEDS ORDERED: METOPROLOL TARTRATE 50 MG TABLET PO SCH (09:00)
[2019-04-08] MEDS ORDERED: PANTOPRAZOLE SODIUM 40 MG TABLET.DR PO SCH (09:00)
[2019-04-08] MEDS ORDERED: ALBUTEROL SULFATE 2.5 MG/3 ML AMPUL.NEB NEB PRN (09:00)
[2019-04-08] MEDS ORDERED: BACLOFEN 10 MG TABLET PO PRN (09:00)
[2019-04-08 10:05] VITALS: BMI 34.0
--- NOTE | 2019-04-08 12:47 | Discharge Summary ---
Discharge Summary - Discharge [facility] Admission Date: 04/08/19 Discharge Date: 04/08/19 Discharge To: Home History of Present Illness: Patient presented to the ER with SOB and CP. His old tubing to his nebulizer had broken and he got out the new one to use at home but found it was broken. This was several days ago. Continued to get worse and could not use his nebulizer. In the ER he responded well to nebulizers. BNP mildly elevated so given 20 mg IV lasix as well as IV steroids. Admitted to 23 hour observation to rule out WI due to chest pain with telemetry. He has DANA and uses CPAP nightly per his report. Breathing is better when he uses it. Condition at Discharge: Stable Home Medications: Ambulatory Orders Medication Instructions Recorded Finasteride [Proscar] 5 mg PO HS 04/08/19 Metoprolol Tartrate [Lopressor] 50 mg PO BID 04/08/19 Tamsulosin HCl 0.4 mg PO DAILY 04/08/19 predniSONE [Deltasone] 40 mg PO QDAY #8 tablet 04/08/19 Consultations this Visit: None Procedures this Visit: None Allergies/Adverse Reactions: Allergies Allergy/AdvReac Type Severity Reaction Status Date / Time bacitracin Allergy Verified 04/08/19 07:00 [From Triple Antibiotic] neomycin sulfate Allergy Verified 04/08/19 07:00 [From Triple Antibiotic] polymyxin B Allergy Verified 04/08/19 07:00 [From Triple Antibiotic] Discharge Summary: Patient did well on observation. Telemetry showed NSR. Cardiac enzymes were negative x 3. On room air. Breathing was normal. Will discharge home. Plan to continue CPAP. F.U. in a week. Hospital Course: Discharge Dx: Atypical CP. COPD. Spinal stenosis. DANA with CPap
[2019-04-08] MEDS ORDERED: RIVAROXABAN 10 MG TABLET PO SCH (18:00)
[2019-04-08] MEDS ORDERED: methylPREDNISolone SOD SUCC 80 MG in 0.9 % SODIUM CHLORIDE 100 ML IV ONE (20:00)
[2019-04-08 20:34] VITALS: BP 128/72
[2019-04-08] MEDS ORDERED: FINASTERIDE 5 MG TABLET PO SCH (21:00)
[2019-04-08] MEDS ORDERED: ATORVASTATIN CALCIUM 10 MG TABLET PO SCH (21:00)
== END 2019-04-08 19:50 | disposition home or self-care (01) ==
LOC: ED 06:34 → SOUTH 08:54
PROVIDERS: ADMIT Family Medicine; ATTEND Family Medicine
DX: J44.9 Chronic obstructive pulmonary disease, unspecified (principal); R79.89 Other specified abnormal findings of blood chemistry; R07.9 Chest pain, unspecified
CPT/HCPCS: 36415; 71046; 80053; 82550; 82553; 83880; 84484; 85025; 93005; 94640; 94760; 99234; G0378; J1940; J2920; J7614; J1030; S1016